=== PATIENT | female | born 2005 | race Caucasian/White ===

== ENCOUNTER → 2024-03-26 13:07 | Outpatient (BNVA) | payer MEDICAID, SELFPAY | PROVIDERS: Family Provider Family Medicine; PCP Family Medicine; Visit Provider Nurse Practitioner Family | DX: B35.1 Tinea unguium (principal); B07.8 Other viral warts; B35.3 Tinea pedis | CPT/HCPCS: 99204 ==

== ENCOUNTER → 2024-05-28 13:34 | Outpatient (BNVA) | payer MEDICAID, SELFPAY | PROVIDERS: Family Provider Family Medicine; PCP Family Medicine; Visit Provider Nurse Practitioner Family | DX: B35.1 Tinea unguium (principal); B07.8 Other viral warts; B35.3 Tinea pedis | CPT/HCPCS: 17110; 99214 ==

== ENCOUNTER → 2024-06-26 14:10 | Outpatient (BNVA) | payer MEDICAID, SELFPAY | PROVIDERS: Family Provider Family Medicine; PCP Family Medicine; Visit Provider Nurse Practitioner Family | DX: B07.8 Other viral warts (principal); B35.1 Tinea unguium; B35.3 Tinea pedis | CPT/HCPCS: 17110; 99214 ==

== ENCOUNTER → 2024-07-17 14:08 | Outpatient (BNVA) | payer MEDICAID, SELFPAY | PROVIDERS: Family Provider Family Medicine; PCP Family Medicine; Visit Provider Nurse Practitioner Family | DX: B07.8 Other viral warts (principal); B35.1 Tinea unguium; B35.3 Tinea pedis | CPT/HCPCS: 17110; 99214 ==

== ENCOUNTER → 2024-08-15 14:12 | Outpatient (BNVA) | payer MEDICAID, SELFPAY | PROVIDERS: Family Provider Family Medicine; PCP Family Medicine; Visit Provider Nurse Practitioner Family | DX: B07.8 Other viral warts (principal); B35.1 Tinea unguium; B35.3 Tinea pedis | CPT/HCPCS: 17110; 99214 ==

== ENCOUNTER → 2024-09-05 13:50 | Outpatient (BNVA) | payer MEDICAID, SELFPAY | PROVIDERS: Family Provider Family Medicine; PCP Family Medicine; Visit Provider Nurse Practitioner Family | DX: B07.8 Other viral warts (principal); B35.1 Tinea unguium; B35.3 Tinea pedis | CPT/HCPCS: 17110; 99214 ==

== ENCOUNTER → 2024-09-26 10:15 | Outpatient (BNVA) | payer MEDICAID, SELFPAY | PROVIDERS: Family Provider Family Medicine; PCP Family Medicine; Visit Provider Nurse Practitioner Family | DX: B07.8 Other viral warts (principal); B35.1 Tinea unguium; B35.3 Tinea pedis | CPT/HCPCS: 17110; 99213 ==

== ENCOUNTER → 2024-11-27 14:50 | Outpatient (BNVA) | payer MEDICAID, SELFPAY | PROVIDERS: Family Provider Family Medicine; PCP Family Medicine; Visit Provider Dermatology | DX: B35.1 Tinea unguium (principal); B35.3 Tinea pedis; B07.8 Other viral warts; Z78.9 Other specified health status; L29.89 Other pruritus; L53.8 Other specified erythematous conditions; R20.8 Other disturbances of skin sensation | CPT/HCPCS: 17110; 99214 ==

== ENCOUNTER → 2024-12-26 15:25 | Outpatient (BNVA) | payer MEDICAID, SELFPAY | PROVIDERS: Family Provider Family Medicine; PCP Family Medicine; Visit Provider Dermatology | DX: B35.1 Tinea unguium (principal); B35.3 Tinea pedis; B07.8 Other viral warts; Z78.9 Other specified health status; L29.89 Other pruritus; L53.8 Other specified erythematous conditions; R20.8 Other disturbances of skin sensation | CPT/HCPCS: 17110; 99213 ==

== ENCOUNTER → 2025-01-22 15:41 | Outpatient (BNVA) | payer MEDICAID, SELFPAY | PROVIDERS: Family Provider Family Medicine; PCP Family Medicine; Visit Provider Dermatology | DX: B35.1 Tinea unguium (principal); L84 Corns and callosities; B07.8 Other viral warts; Z78.9 Other specified health status; L29.89 Other pruritus; L53.8 Other specified erythematous conditions; R20.8 Other disturbances of skin sensation | CPT/HCPCS: 17110; 99214 ==